=== PATIENT | male | born 1965 | race Hispanic/Latino ===

== ENCOUNTER 2016-12-26 13:49 | Emergency (ER) | payer SELFPAY ==
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
[2016-12-26] MEDS ORDERED: NORCO 5/325 PO ONE (22:52)
[2016-12-26] MEDS ORDERED: MOTRIN PO ONE (22:52)
[2016-12-26 23:28] VITALS: BP 162/78
== END 2016-12-26 23:26 | disposition home or self-care (01) ==
LOC: ED 13:49
DX: S22.32XA Fracture of one rib, left side, initial encounter for closed fracture (principal); F17.210 Nicotine dependence, cigarettes, uncomplicated; Y04.8XXA Assault by other bodily force, initial encounter; Y93.89 Activity, other specified; Y92.89 Other specified places as the place of occurrence of the external cause; Y99.8 Other external cause status
CPT/HCPCS: 71020; 99283